=== PATIENT | male | born 1960 | race African-American/Black ===

== ENCOUNTER 2016-12-09 16:35 | Inpatient (IN) | payer BC ==
[~2016-12-09] VITALS: Ht 172.7 cm; Wt 116.6 kg
--- NOTE | ~2016-12-09 | EKG ---
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1960 Requested By: Venkatesh Parra Order Number: [id number] MD: Gen Negro Measurements Intervals [place] Rate: 101 P: 14 SD: 165 QRS: -22 QRSD: 91 T: -22 QT: 332 QTc: 431 Interpretive Statements Sinus tachycardia Left atrial enlargement Left ventricular hypertrophy Borderline T abnormalities, inferior leads No previous ECG available for comparison Electronically Signed On 12-10-2016 7:44:26 CDT by Gen Negro [email or web address] <ELECTRONICALLY SIGNED> By: Gen Negro MD, [facility] 12/10/16 0744 48 48 Gen Negro MD, [facility] /EPI
--- NOTE | ~2016-12-09 | H ---
[facility] [place] [address] HISTORY AND PHYSICAL Name: SVETA MADRID Room #: 408-P ADM IN M.R.#: [id number] Admission: 12/09/16 Attend Phys: Valeriano Cummings MD Discharge: Date of : 60 Report #: [id number] THIS REPORT FOR: //name// CC: FAM unknown Valeriano Cummings DATE OF SERVICE: 12/09/2016 HISTORY OF PRESENT ILLNESS: The patient is a 56-year-old man with no major health problems, who started having cough and mild shortness of breath 2-3 weeks ago. The patient recalls that initially he started having upper respiratory infection symptoms. He used some wwva-wmi-bgpiokb medications with some success. Last few days, the patient felt progressively short of breath and had fever. He saw his primary care physician, who recommended him to come to the emergency room. While in the ER, the patient's body temperature was found to be 101.2. Chest x-ray showed bilateral infiltrates. The patient received 3 breathing treatments, and now he feels much better. His temperature now is 99.6. His cough has also improved. He has been hemodynamically stable. PAST MEDICAL HISTORY: 1. Hypertension. 2. Allergies. CURRENT MEDICATIONS: Amlodipine 10 mg a day, hydrochlorothiazide 25 mg a day, lisinopril 20 mg a day, and Claritin 10 mg a day. SOCIAL HISTORY: The patient does not smoke cigarettes and does not drink alcohol. FAMILY HISTORY: Reviewed and not pertinent to the patient's current condition. REVIEW OF SYSTEMS: As above in HPI section, all others negative. PHYSICAL EXAMINATION: VITAL SIGNS: Blood pressure is 174/97, heart rate is 116, respiration is 20, and temperature is 99.6, from 101.2. Oxygen saturation is 93%. HEENT: Pupils are equal. Eye movements are normal. Sclerae are anicteric. Ear examination is deferred. NECK: Supple. The patient has no thyromegaly. Oral mucosa is moist. Thyromegaly is not palpated. RESPIRATORY: Chest moves symmetrically with breathing. The patient has scattered wheezes bilaterally. Crackles are not appreciated. CARDIOVASCULAR: The patient has regular rhythm and rate. He has no murmurs, gallops, or rubs. [address] [address] HISTORY AND PHYSICAL Name: MADRIDSVETA YUAN Room #: [address] [place] [address] IN M.R.#: [id number] Admission: 12/09/16 Attend Phys: Valeriano Cummings MD Discharge: Date of : 60 Report #: [id number] GASTROINTESTINAL: Abdomen is soft, nondistended, and nontender. Bowel sounds are present. The patient has no hepatomegaly or splenomegaly. MUSCULOSKELETAL: The patient has no edema, cyanosis, or clubbing. NEUROLOGIC: The patient is alert and oriented x3. His examination is nonfocal. LABORATORY DATA: Chest x-ray shows bilateral perihilar hazy infiltrates. Lactic acid is normal. Basic metabolic profile is unremarkable. On CBC, white count is normal, with 7% of bandemia. Hemoglobin is 11.9, hematocrit is 36.7, and MCV is 76.2. Platelets are normal. ASSESSMENT AND PLAN: 1. Community-acquired pneumonia. The patient is started on Zithromax and Rocephin, which will be continued. Blood culture is obtained, and the results will be followed. The patient will be continued on breathing treatments. 2. Accelerated hypertension. Home medications will be resumed. We will treat the patient with hydralazine p.r.n. 3. Mild anemia and low MCV. Possible iron deficiency. Outpatient workup. 4. Deep venous thrombosis prophylaxis. SubQ Retax. By: 49 10 Valeriano Cummings MD /nt
--- NOTE | ~2016-12-09 | 2DMMODE ---
[facility] [address] [place] [address] 2 D/M-MODE ECHOCARDIOGRAM Name: SVETA MADRID Room #: 212-P ADM IN M.R.#: [id number] Admission: 12/09/16 Attend Phys: Valeriano Cummings Discharge: Date of : 60 Date of Service: 12/11/16 1108 Report #: [id number] THIS REPORT FOR: //name// APPROVED REPORT Study performed: 12/11/2016 09:57:50 EXAM: Comprehensive 2D, Doppler, and color-flow Echocardiogram Patient Location: Echo lab Room #: 212 Blood Pressure: 142/75 mmHg HR: 119 bpm Rhythm: Tachycardia Other Information Study Quality: Adequate Indications Cough and SOA Hx HTN 2D Dimensions RVDd: 47.93 mm LVEF(%): 77.48 (>50%) IVSd: 13.98 (7-11mm) LVOT Diam: 22.57 (18-24mm) LVDd: 49.77 mm PWd: 12.57 (7-11mm) Ascending Ao: 29.91 (22-36mm) LVDs: 26.73 (25-40mm) Aortic Root: 33.35 mm Gupta's LVEF: 77.48 % Volumes Left Atrial Volume (Systole) Single Plane 4CH: 77.57 mL Single Plane 2CH: 97.15 mL Aortic Valve AoV Peak Vivek.: 2.30 m/s AO Peak Gr.: 21.20 mmHg LVOT Max P.73 mmHg LVOT Max V: 1.48 m/s ROBERT Vmax: 2.57 cm2 Mitral Valve IVRT: 83.04 ms [facility] [address] [place] [address] 2 D/M-MODE ECHOCARDIOGRAM Name: SVETA MADRID Room #: 212-P ADM IN M.R.#: [id number] Admission: 12/09/16 Attend Phys: Valeriano Cummings Discharge: Date of : 60 Date of Service: 12/11/16 1108 Report #: [id number] Pulmonary Valve PV Peak Vivek.: 1.19 m/s PV Peak Gr.: 5.65 mmHg Tricuspid Valve RAP Estimate: 5.00 mmHg Left Ventricle The left ventricle is normal size. There is normal LV segmental wall motion. Mild concentric left ventricular hypertrophy. The left ventricular systolic function is normal. LVEF is 65%. This study is not technically sufficient to allow evaluation of the LV diastolic function due to tachycardia. Right Ventricle The right ventricle is normal size. The right ventricular systolic function is normal. Atria Left atrium is dilated. Right atrium is dilated. Aortic Valve The aortic valve is normal in structure. No aortic regurgitation is present. There is no aortic valvular stenosis. Mitral Valve The mitral valve is normal in structure. Trace mitral regurgitation. No evidence of mitral valve stenosis. Tricuspid Valve The tricuspid valve is normal in structure. There is no tricuspid valve regurgitation noted. Pulmonic Valve Pulmonic valve is not well visualized. Great Vessels The aortic root is normal in size. The ascending aorta is normal in size. IVC is normal in size and collapses >50% with inspiration. Pericardium There is no pericardial effusion. <Conclusion> The left ventricle is normal size. LVEF is 65%. [facility] [address] [place] [address] 2 D/M-MODE ECHOCARDIOGRAM Name: SVETA MADRID Room #: 212-[facility] IN M.R.#: [id number] Admission: 12/09/16 Attend Phys: Valeriano Cummings Discharge: Date of : 60 Date of Service: 12/11/161107 Report #: [id number] Left atrium is dilated. Right atrium is dilated. The aortic valve is normal in structure. The mitral valve is normal in structure. Trace mitral regurgitation. The tricuspid valve is normal in structure. <ELECTRONICALLY SIGNED> By: Kelby Castorena MD 12/11/168 07 07 Kelby Castorena MD /INF
--- NOTE | ~2016-12-09 | HC ---
[facility] [address] [place] [address] CONSULTATION Name: SVETA MADRID Room #: 210- ADM IN M.R.#: [id number] Admission: 12/09/16 Attend Phys: Valeriano Cummings MD Discharge: Date of : 60 Report #: [id number] THIS REPORT FOR: //name// CC: FAM unknown Valeriano Cummings REASON FOR CONSULTATION: I was asked to evaluate concerning fever and pulmonary infiltrates. HISTORY OF PRESENT ILLNESS: The patient was a 56-year-old with history of hypertension and previous atrial fibrillation who presents with a 2-week history of sinus congestion, postnasal drip, cough, which has progressed to shortness of breath. In the last several days, he is noted fever and chills. He has not taken his temperature. He was seen in the outpatient clinic and recommended evaluation in the emergency room where chest x-ray showed bilateral more basilar infiltrate and fever over 101 degrees. He was started on IV antibiotic therapy. Went into atrial fibrillation with rapid ventricular response overnight and was sent down to the critical care unit. He remains hemodynamically stable. History of atrial fibrillation, he stated about 10 years ago, which was intermittent. He said he had his follow up visit all was clear and no further treatment was recommended. He has had 2 pneumonias in the past, last one in the late 1990s. He has no HIV risk factors. He does have intermittent chronic sinus disease. He is a nonsmoker. 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 He has several children at home, all of them have been well. No other known exposures. ALLERGIES: None. MEDICATIONS: As noted on his MAR, including amlodipine, hydrochlorothiazide, lisinopril and Claritin, now on vancomycin and Levaquin. PAST MEDICAL HISTORY: As noted above with no additions. FAMILY HISTORY: Noncontributory. SOCIAL HISTORY: As noted above with no tobacco or alcohol use. REVIEW OF SYSTEMS: He denies any GI or complaints. No rash, arthritis, headache. PHYSICAL EXAMINATION: VITAL SIGNS: Temperature is 99.7, hemodynamically stable, although he is tachycardic at 120. He was alert and cooperative and pleasant, in no acute distress. His maximum temperature in the last 24 hours is 102.4 degrees. SKIN: Unremarkable. LYMPH: Unremarkable other than some moderately obese. [address] [address] CONSULTATION Name: SVETA MADRID Room #: 210 ADM IN M.R.#: [id number] Admission: 12/09/16 Attend Phys: Valeriano Cummings MD Discharge: Date of : 60 Report #: [id number] HEENT: Unremarkable. NECK: Supple. LUNGS: Few crackles in the bases bilaterally, had some lesion in the upper mid chest. HEART: Tachycardic. No rub appreciated. ABDOMEN: Soft, nontender, no hepatosplenomegaly or mass. EXTREMITIES: No peripheral edema. NEUROLOGIC: Normal. LABORATORY STUDIES: Chest x-ray, bilateral perihilar and basilar infiltrates, greatest on the left. Blood cultures are pending, negative so far. MRSA screen is pending. Sodium 140, potassium 3.6, bicarbonate 27, creatinine 1, hemoglobin 12.4, platelet count 331,000, white count 9.9, 79% segs, 2% bands. IMPRESSION: A 56-year-old with bilateral pulmonary infiltrates, ongoing fever with complication of atrial fibrillation with rapid ventricular response. His echocardiogram showed a good EF, although he did have dilated right and left atriums. I suspect community acquired organisms, most likely, although needs further evaluation. I would recommend continuing broad antibiotic coverage for community acquired organisms. Check sputum culture, urine antigens, screen HIV and immunoglobulin, treat atrial fibrillation and followup chest x-ray. <ELECTRONICALLY SIGNED> By: Vance Reid MD 12/12/16 1857 1310 12 Vance Reid MD /nt
[2016-12-09 16:39] VITALS: BP 202/111
[2016-12-09] MEDS ORDERED: CLARITIN10 MG PO (17:08)
[2016-12-09 17:35] LABS: HEMATOCRIT 36.7 % (42.0-52.0); HEMOGLOBIN 11.9 gm/dL (14.0-18.0); MANUAL DIFF YES; MCH 24.6 pg (26.0-34.0); MCHC 32.3 g/dL (28.0-37.0); MCV 76.2 fL (80.0-100.0); PLATELET COUNT 309 thou/uL (150-400); RBC 4.82 mil/uL (4.50-6.00); RDW 19.6 % (10.5-14.5); WBC 8.9 thou/uL (4.0-11.0)
[2016-12-09 17:46] LABS: ANION GAP 9 mmol/L (7-16); BUN 12 mg/dL (7-18); CALCIUM 9.2 mg/dL (8.5-10.1); CHLORIDE 101 mmol/L (98-107); CO2 27 mmol/L (21-32); GLUCOSE 118 mg/dL (74-106); POTASSIUM 3.5 mmol/L (3.5-5.1); SODIUM 137 mmol/L (136-145)
[2016-12-09 17:58] LABS: NT-PRO BRAIN NAT PEPTIDE 213 pg/mL (<300); TROPONIN-I < 0.04 ng/mL (<0.04-0.07)
[2016-12-09 18:00] LABS: ABSOLUTE NEUTROPHILS 6.9 thou/uL (1.4-8.2); ANISOCYTOSIS 1+; HYPOCHROMASIA SLIGHT; TOTAL CELL COUNT 100
[2016-12-09 18:01] LABS: LARGE PLATELETS FEW
[2016-12-09] MEDS ORDERED: NORVASC10 MG PO (19:00)
[2016-12-09] MEDS ORDERED: PRINIVIL20 MG PO (19:00)
[2016-12-09] MEDS ORDERED: HYDROCHLOROTHIA25 M2 PO (19:00)
[2016-12-09 19:50] VITALS: BP 146/98
[2016-12-10] VITALS (16 sets, daily range): BP systolic 136–184; BP diastolic 65–113
[2016-12-10 06:14] LABS: HEMATOCRIT 37.7 % (42.0-52.0); HEMOGLOBIN 12.2 gm/dL (14.0-18.0); MCH 24.8 pg (26.0-34.0); MCHC 32.4 g/dL (28.0-37.0); MCV 76.8 fL (80.0-100.0); PLATELET COUNT 327 thou/uL (150-400); RBC 4.91 mil/uL (4.50-6.00); RDW 19.9 % (10.5-14.5); WBC 9.9 thou/uL (4.0-11.0)
[2016-12-10 06:15] LABS: MANUAL DIFF YES
[2016-12-10 06:20] LABS: CALCIUM 8.9 mg/dL (8.5-10.1); CREATININE 1.2 mg/dL (0.7-1.3); POTASSIUM 3.6 mmol/L (3.5-5.1)
[2016-12-10 08:42] LABS: ABSOLUTE NEUTROPHILS 7.7 thou/uL (1.4-8.2); ANISOCYTOSIS 1+; PLATELET ESTIMATE NORMAL; TOTAL CELL COUNT 100
[2016-12-11] VITALS (9 sets, daily range): BP systolic 124–169; BP diastolic 75–106
[2016-12-11 05:00] LABS: HEMATOCRIT 38.1 % (42.0-52.0); HEMOGLOBIN 12.4 gm/dL (14.0-18.0); MCH 24.8 pg (26.0-34.0); MCHC 32.6 g/dL (28.0-37.0); MCV 76.1 fL (80.0-100.0); PLATELET COUNT 331 thou/uL (150-400); RBC 5.01 mil/uL (4.50-6.00); RDW 19.4 % (10.5-14.5); WBC 9.9 thou/uL (4.0-11.0)
[2016-12-11 05:05] LABS: MANUAL DIFF YES
[2016-12-11 05:08] LABS: CALCIUM 9.1 mg/dL (8.5-10.1); POTASSIUM 3.6 mmol/L (3.5-5.1)
[2016-12-11 05:34] LABS: METAMYELOCYTES 1 %; TOTAL CELL COUNT 100
[2016-12-11 05:35] LABS: ANISOCYTOSIS 2+; MACROCYTES FEW; MICROCYTES 2+; POLYCHROMASIA 1+
[2016-12-11 19:08] LABS: IgE < 1 IU/mL (0-100)
[2016-12-11 22:09] LABS: HIV ANTIBODY Non Reactive (Non Reactive)
[2016-12-11 23:10] LABS: IgA < 50 mg/dL (90-386); IgG 608 mg/dL (700-1600); IgM 87 mg/dL (20-172)
[2016-12-12 01:59] LABS: HEMATOCRIT 35.9 % (42.0-52.0); HEMOGLOBIN 11.7 gm/dL (14.0-18.0); MCH 24.7 pg (26.0-34.0); MCHC 32.6 g/dL (28.0-37.0); MCV 75.5 fL (80.0-100.0); PLATELET COUNT 317 thou/uL (150-400); RBC 4.76 mil/uL (4.50-6.00); RDW 19.4 % (10.5-14.5); WBC 9.5 thou/uL (4.0-11.0)
[2016-12-12 02:00] LABS: CALCIUM 8.7 mg/dL (8.5-10.1); CREATININE 1.3 mg/dL (0.7-1.3); MANUAL DIFF YES; POTASSIUM 3.8 mmol/L (3.5-5.1)
[2016-12-12 02:34] LABS: ABSOLUTE NEUTROPHILS 6.6 thou/uL (1.4-8.2); ANISOCYTOSIS 2+; MICROCYTES 1+; TOTAL CELL COUNT 100
[2016-12-12 04:11] VITALS: BP 156/101
[2016-12-12 09:06] VITALS: BP 130/91
[2016-12-12 11:52] VITALS: BP 145/90
[2016-12-12 12:14] VITALS: BP 132/67
[2016-12-12 15:45] VITALS: BP 137/85
[2016-12-12 17:33] LABS: URINE BILIRUBIN NEGATIVE (Negative); URINE BLOOD 1+ (Negative); URINE COLOR YELLOW; URINE GLUCOSE-RANDOM* NEGATIVE (Negative); URINE KETONES NEGATIVE (Negative); URINE LEUKOCYTES-REFLEX NEGATIVE (Negative); URINE PROTEIN (DIPSTICK) 2+ (Negative); URINE SPECIFIC GRAVITY >= 1.030 (1.003-1.035); URINE UROBILINOGEN 0.2 E.U./dl (0.2-1.0)
[2016-12-12 17:40] LABS: AMORPHOUS URATES Few /LPF (None Seen); HYALINE CASTS 0-3 Few /LPF (None Seen); SQUAMOUS 0-3 Few /LPF (0-3); URINE RBC 3-10 Few /HPF (0-2); URINE WBC-REFLEX 0-5 Rare /HPF (0-5)
[2016-12-12 20:54] VITALS: BP 148/77
[2016-12-13 04:44] VITALS: BP 148/100
[2016-12-13 08:31] VITALS: BP 139/79
[2016-12-13 12:20] VITALS: BP 139/79
[2016-12-13] MEDS ORDERED: LEVAQUIN 750 M750 MG PO (12:25)
[2016-12-13] MEDS ORDERED: BYSTOLIC10 MG PO (12:27)
[2016-12-13] MEDS ORDERED: VENTOLIN HFA 1818 GM INH (12:27)
[2016-12-13 13:00] VITALS: BP 139/79
[2016-12-14 08:22] LABS: LEGIONELLA PCR SOURCE SPUTUM
== END 2016-12-13 13:33 | disposition home or self-care (01) | DRG 871 ==
LOC: ER 16:35 → EROBS 18:40 → 4N 18:40 → 2N 12-10 17:34
PROVIDERS: Internal Medicine Endocrinology, Diabetes & Metabolism; Physician Assistant; Specialist
PROC: 5A09357 Assistance with Respiratory Ventilation, Less than 24 Consecutive Hours, Continuous Positive Airway Pressure (ICD-10-PCS; principal; 2016-12-09)
DX: A41.9 Sepsis, unspecified organism (principal); A48.1 Legionnaires' disease; I10 Essential (primary) hypertension; N28.89 Other specified disorders of kidney and ureter; D64.9 Anemia, unspecified; I48.0 Paroxysmal atrial fibrillation; F41.9 Anxiety disorder, unspecified; G47.33 Obstructive sleep apnea (adult) (pediatric); J30.2 Other seasonal allergic rhinitis; Z79.899 Other long term (current) drug therapy
CPT/HCPCS: 10081; 10091

== ENCOUNTER 2017-11-04 09:31 | Inpatient (IN) | payer BC ==
[~2017-11-04] VITALS: Ht 188 cm; Wt 120.1 kg
[2017-11-04] VITALS (7 sets, daily range): BP systolic 128–155; BP diastolic 86–118
--- NOTE | ~2017-11-04 | CNG ---
[facility] [place] [address] CYTO-NONGYN REPORT PROCEDURE Name: SVETA MADRID Room #: 359-P ADM IN M.R.#: [id number] Admission: 11/04/17 Date of : 60 Discharge: Report #: [id number] Path Case #: [id number] CYTOPATHOLOGY REPORT COLLECTION DATE: 11/09/2017 RECEIVED DATE: 11/09/2017 SUBMITTING PHYS: Dr. Agus Brar OTHER PHYS: Angelo Abel D.O. CLINICAL HISTORY: Sepsis, CAP, AFIB, RVR, Weakness, CHF, SOA SPECIMEN(S) RECEIVED: A.Bronchoalveolar lavage, NOS B.Bronchoalveolar lavage,NOS * * * * * * * * * * * * FINAL DIAGNOSIS: A. Bronchoalveolar lavage, NOS: - No malignant epithelial cells identified. - Bronchial epithelial cells, alveolar macrophages, and squamous cells are present amongst acute and chronic inflammatory cells in a background of partially obscuring debris. B. Bronchoalveolar lavage,NOS: - Paucicellular specimen with rare acute and chronic inflammatory cells present in a background of partially obscuring debris. PATHOLOGIST: Courtney Riley M.D. REPORT ELECTRONICALLY SIGNED BY: Courtney Riley M.D. DATE/TIME: 11/10/2017 12:15 * * * * * * * * * * * * GROSS PATHOLOGY: A. Bronchoalveolar lavage, NOS: The specimen is submitted unfixed, labeled "Sveta Madrid". Received by the Cytology Department is seven mL of cloudy pink fluid. One ThinPrep slide was prepared. B. Bronchoalveolar lavage,NOS: The specimen is submitted unfixed, labeled "Sveta Madrid". Received by the Cytology Department is five mL of cloudy red fluid. One ThinPrep slide was prepared. (mm 11.09.2017) URBAN PLANNING PROFESSOR(S): DEVIKA Beavers([facility]) INITIAL CPT CODE(S): A; 44619 B; 27157 Professional [facility] by [facility] at [address] , [place] [address] [place] [address] CYTO-NONGYN REPORT PROCEDURE Name: SVETA MADRID Room #: 359-P [facility] IN M.R.#: [id number] Admission: 11/04/17 Date of : 60 Discharge: Report #: [id number] Path Case #: [id number] Technical services performed [facility] at [address] [place] [address], [address], [place] [address]. [address] [place] [address] PHONE: [phone] DIRECTOR: Ky Ceron M.D. * * * END OF REPORT * * *
--- NOTE | ~2017-11-04 | O ---
[facility] [place] [address] OPERATIVE REPORT Name: SVETA MADRID Room #: 359-P [facility] IN M.R.#: [id number] Admission: 11/04/17 Attend Phys: Agus Brar DO Discharge: Date of : 60 Report #: [id number] THIS REPORT FOR: //name// CC: TATYANA Brar PROCEDURE: Bronchoscopy. CLINICAL HISTORY: A 57-year-old -L[place] male with persistent infiltrates, mediastinal adenopathy. A diagnostic bronchoscopy was performed. POSTOPERATIVE DIAGNOSIS: Diffuse bilateral airway edema, greater in the left upper lobe. IMPRESSION: No evidence of pneumonia. DESCRIPTION OF PROCEDURE: Following obtaining consent and risks and benefits been explained to the patient, which include infection, bleeding, pneumothorax, procedure performed in the endoscopy suite. The patient received 4% aerosolized lidocaine to the upper airways. Also, was given 2% lidocaine to the vocal cords. Then, 1% lidocaine was used below the vocal cords. He also received total of 4 mg of Versed along with 100 mcg of fentanyl IV. A flexible fiberoptic bronchoscope was then introduced to the right naris without difficulty. The hypopharyngeal area was redundant. The patient does have a history of sleep apnea. The epiglottis was otherwise unremarkable. The vocal cords were normal. The trachea was grossly unremarkable. Brooke was normal. Right mainstem bronchus, right upper lobe, right middle lobe and right lower lobe were notable for drzl-ie-vvzgickq mucosal edema without obvious airway obstruction. No purulent secretion seen. The left mainstem bronchus was unremarkable other than a mild mucosal edema. The left upper lobe showed moderate mucosal edema with some narrowing. No obstruction was seen. There were whitish secretions seen emanating from the anterior segment of the left upper lobe. The left lower lobe also showed oedi-ks-sfhddrvw edema. No purulent secretions seen in this segment. Bronchoalveolar lavage was performed at the approximate anterior segment of the left upper lobe. Four aliquots of 20 mL normal saline was used with adequate return. We attempted to do a bronchial biopsy of the mucosa; however, with minimal airway trauma, the patient appeared to have moderate bleeding. Of note, the patient was on Xarelto, which was discontinued about 5 days ago. We then washed the area of the bleed in the proximal segment of the left upper lobe. While suctioning along with administration of 5 mL of 1:100,000 epinephrine, the bleeding appears to have subsided. [address] [address] OPERATIVE REPORT Name: SVETA MADRID Room #: 359-P [facility] IN .R.#: [id number] Admission: 11/04/17 Attend Phys: Agus Brar DO Discharge: Date of : 60 Report #: [id number] Vital signs and saturation throughout the study were within normal range. Saturation was 95%. The patient did have trouble with episodic cough throughout the procedure. Bronchial lavage specimen will be sent for microbiologic and cytologic evaluation. Cell count with differential will also be obtained. No biopsy specimen was performed due to moderate bleeding. <ELECTRONICALLY SIGNED> By: Eugene Brady MD 11/09/17 1549 1510 1546 Eugene Brady MD /nt
--- NOTE | ~2017-11-04 | EKG ---
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
--- NOTE | ~2017-11-04 | 2DMMODE ---
[facility] [address] [place] [address] 2 D/M-MODE ECHOCARDIOGRAM Name: SVETA MADRID Room #: 359-P ADM IN ..#: [id number] Admission: 11/04/17 Attend Phys: Agus Brar, Discharge: Date of : 60 Date of Service: 11/04/17 1537 Report #: [id number] THIS REPORT FOR: //name// APPROVED REPORT Study performed: 11/04/2017 13:45:26 EXAM: Comprehensive 2D, Doppler, and color-flow Echocardiogram Patient Location: Bedside Room #: 359 Status: routine BSA: 2.43 HR: 120 bpm BP: 128/86 mmHg Rhythm: Atrial Fibrillation Other Information Study Quality: Technically Difficult Technically limited study due to body habitus, lung disease, poor endocardial definition. Indications Atrial Fibrillation Exertional SOB, Chest pressure, HTN Echo Enhancing Agent Indication: Endocardial border delineation Agent(s) / Amount(s) Used: Optison 4 cc 2D Dimensions RVDd: 36.29 mm LVEF(%): 48.06 (>50%) IVSd: 13.34 (7-11mm) LVOT Diam: 20.50 (18-24mm) LVDd: 41.24 mm PWd: 11.65 (7-11mm) LVDs: 31.39 (25-40mm) Aortic Root: 36.12 mm IVC: 21.00 mm TAPSE: 2.50 (<1.7) Gupta's LVEF: 48.06 % Volumes Left Atrial Volume (Systole) Single Plane 4CH: 124.71 mL Single Plane 2CH: 146.62 mL LA ESV Index: 64.00 mL/m2 Aortic Valve [facility] [place] [address] [place] [address] 2 D/M-MODE ECHOCARDIOGRAM Name: SVETA MADRID Room #: 359 ADM IN ..#: [id number] Admission: 11/04/17 Attend Phys: Agus Brar, Discharge: Date of : 60 Date of Service: 11/04/17 1537 Report #: [id number] AoV Peak Vivek.: 1.75 m/s AO Peak Gr.: 12.59 mmHg LVOT Max P.38 mmHg LVOT Max V: 1.15 m/s ROBERT Vmax: 2.18 cm2 Mitral Valve MV Decel. Time: 195.13 ms MV E Max Vivek.: 1.27 m/s Pulmonary Valve PV Peak Vivek.: 0.92 m/s PV Peak Gr.: 3.40 mmHg Tricuspid Valve RAP Estimate: 10.00 mmHg Left Ventricle The left ventricle is normal size. Mild concentric left ventricular hypertrophy. Left ventricular systolic function is mildly decreased. LVEF is 40-45%. This study is not technically sufficient to allow evaluation of the LV diastolic function due to atrial fibrillation. Right Ventricle The right ventricle is normal size. The right ventricular systolic function is normal. Atria Left atrium is dilated. Right atrium is dilated. Aortic Valve The aortic valve is normal in structure. Mild aortic regurgitation. There is no aortic valvular stenosis. Mitral Valve Mitral valve leaflets are mildly thickened. There is no mitral valve regurgitation noted. No evidence of mitral valve stenosis. Tricuspid Valve The tricuspid valve is normal in structure. Trace tricuspid regurgitation. Unable to assess PA pressure. Pulmonic Valve The pulmonary valve is normal in structure. Trace pulmonic regurgitation. Great Vessels [facility] [address] [place] [address] 2 D/M-MODE ECHOCARDIOGRAM Name: SVETA MADRID Room #: 359-P ADM IN M.R.#: [id number] Admission: 11/04/17 Attend Phys: Agus Brar, Discharge: Date of : 60 Date of Service: 11/04/17 1537 Report #: [id number] The aortic root is normal in size. IVC is normal in size and collapses <50% with inspiration. Pericardium There is no pericardial effusion. <Conclusion> The left ventricle is normal size. Mild concentric left ventricular hypertrophy. LVEF is 40-45%. This study is not technically sufficient to allow evaluation of the LV diastolic function due to atrial fibrillation. The right ventricle is normal size. Left atrium is dilated. Right atrium is dilated. Mild aortic regurgitation. There is no aortic valvular stenosis. There is no mitral valve regurgitation noted. Mitral valve leaflets are mildly thickened. Trace tricuspid regurgitation. Unable to assess PA pressure. The aortic root is normal in size. There is no pericardial effusion. <ELECTRONICALLY SIGNED> By: Tomi Riddle MD, FACC 11/04/17 1537 1537 1537 Tomi Riddle MD, FACC /INF
--- NOTE | ~2017-11-04 | EKG ---
[address] [place] [address] ELECTROCARDIOGRAM REPORT Name: SVETA MADRID Room #: 359-P ADM IN M.R.#: [id number] Admission: 11/04/17 Attend Phys: Agus Brar DO Discharge: Date of : 60 Report #: [id number] THIS REPORT FOR: //name// [facility] ED Test Date: 2017-11-04 Test Time: 09:49:59 Pat Name: SVETA MADRID Department: Room: 359 Gender: M Barback: CLEMENT : 1960 Requested By: Tolu Andrea Order Number: [id number] MD: Gen Negro Measurements Intervals [place] Rate: 186 P: NE: QRS: -33 QRSD: 87 T: -59 QT: 288 QTc: 507 Interpretive Statements Atrial fibrillation with rapid V-rate Abnormal R-wave progression, late transition Nonspecific ST and T wave abnormality Compared to ECG 12/09/2016 16:49:43 Atrial fibrillation has replaced sinus rhythm Electronically Signed On 11-05-2017 8:17:56 CDT by Gen Negro [email or web address] <ELECTRONICALLY SIGNED> By: Gen Negro MD, [facility] 11/05/17 0817 0949 0949 Gen Negro MD, [facility] /EPI
--- NOTE | ~2017-11-04 | HC ---
[facility] [place] [address] CONSULTATION Name: SVETA MADRID Room #: 359- ADM IN M.R.#: [id number] Admission: 11/04/17 Attend Phys: Agus Brar DO Discharge: Date of : 60 Report #: [id number] THIS REPORT FOR: //name// CC: TATYANA Brar DATE OF SERVICE: 11/05/2017 REFERRAL PHYSICIAN: Dr. Brar. PRIMARY CARE PHYSICIAN: Dr. Abel. REASON FOR REFERRAL: History of lung nodules and infiltrates. HISTORY OF PRESENT ILLNESS: The patient is a 57-year-old -Pakistani male, who presents to the Emergency Room with progressive dyspnea and chest discomfort. A pulmonary consultation was requested. The patient was hospitalized about a year ago at [facility]. He was treated for pneumonia at that time. Chest x-ray revealed infiltrates. With persistent symptoms, I was concerned that patient may have atypical pneumonia including possible though this was not confirmed. The patient is normally followed at [facility]. He was seen by the Pulmonary Department at [facility]. I do not have any records there for review. According to the patient, he was found to have pulmonary nodules. He has had [address] chest along with PET scan. He was told that these are nodules. He was also told that some of the nodules are migratory in nature. He was scheduled to undergo lung biopsy yesterday at [facility]. This was delayed and the patient presented to the hospital here. He states that since his pneumonia about a year ago, he has felt better. His fever, bronchospasm and dyspnea improved. About a week or so ago, he developed flu-like symptoms. Fever returned along with dyspnea and episodic wheezing. With worsening symptoms, he presented to the Emergency Room. He has a cough, but is relatively nonproductive. Yesterday, he had speckled hemoptysis, although this has spontaneously resolved. He has never smoked and denies any history of chronic lung disease. Growing up as a child, he remembers having episodic dyspnea and wheezing, especially when he had an upper respiratory tract infection. He does not remember having wheezes episodically growing up, but was again never diagnosed or treated. Chest x-ray on admission shows prominent pulmonary vascular markings, patchy [address] [address] CONSULTATION Name: SVETA MADRID Room #: 359-P [facility] IN M.R.#: [id number] Admission: 11/04/17 Attend Phys: Agus Brar DO Discharge: Date of : 60 Report #: [id number] bilateral nodular infiltrates in the perihilar region. This appears to be chronic when compared to prior chest x-ray approximately a year ago. PAST MEDICAL HISTORY: Notable for atrial fibrillation, paroxysmal, initially diagnosed in 2001, previous echocardiogram showed ejection fraction of 65%; hypertension; seasonal allergies, primarily during spring. PAST SURGICAL HISTORY: Status post tonsillectomy. ALLERGIES: None to medications. HOME MEDICATIONS: Claritin, Norvasc, hydrochlorothiazide, Prinivil. FAMILY HISTORY: Noncontributory. SOCIAL HISTORY: Again, he has never smoked. Drinks occasionally. 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 REVIEW OF SYSTEMS: As mentioned above. Again, he has spring allergies. This will result in episodic dyspnea, bronchospasm. Otherwise, 10-point system review negative. PHYSICAL EXAMINATION: GENERAL: He is awake, alert, in no apparent distress. VITAL SIGNS: Temperature maximum was 103.3 degrees Fahrenheit, pulse is 101, respiratory rate is 20, blood pressure 140/100 mmHg, saturation 93%. HEENT: Normocephalic, atraumatic. NECK: Supple without lymphadenopathy or thyromegaly. CHEST: Breath sounds are good with mild expiratory wheezes. Few scattered crackles in the bases. CARDIOVASCULAR: Normal S1, S2. No murmurs or gallop. There is no JVD, no carotid bruit. Pulses are 2+/4+ bilaterally. ABDOMEN: Soft, nontender. No organomegaly or masses felt. GENITOURINARY: Deferred. RECTAL: Deferred. EXTREMITIES: There is edema, cyanosis or clubbing. LABORATORY DATA: Chest x-ray again shows prominent pulmonary vascular markings, patchy nodular infiltrates, cardiomegaly, bibasilar infiltrates are noted. Lactic acid is normal. Influenza A and B is negative. Echocardiogram showed ejection fraction approximately 40%, normal left ventricular size, normal right ventricular size, dilated right atrium, dilated left atrium. No significant valvular heart disease. Pulmonary artery pressure was not able to be measured. The patient was in atrial fibrillation. Sed rate is 4. Rheumatoid factor was normal. MANUEL is pending. Complement levels are normal. Electrolytes are normal except for creatinine of 1.4. His baseline creatinine appears to be 1.3. WBC [facility] [address] [place] [address] CONSULTATION Name: SVETA MADRID Room #: 359-P ADM IN M.R.#: [id number] Admission: 11/04/17 Attend Phys: Agus Brar DO Discharge: Date of : 60 Report #: [id number]. No evidence of bandemia. No evidence of eosinophilia. Platelets are normal. Albumin 3.0. IMPRESSION: 1. Progressive dyspnea, febrile illness in this 57-year-old -Pakistani male. He was diagnosed with pneumonia about a year ago. His chest x-ray shows what appears to be acute on chronic infiltrates. He has been also told recently by CT chest the lung nodule, which appears to be migratory in nature. Echocardiogram showed cardiomyopathy with ejection fraction of 40% along with creatinine 1.4. Unfortunately, I do not have the CT imaging from [facility] for review. This has been requested. Etiology remains unclear, but appears that etiology may be directed to possible inflammatory causes or collagen vascular disease. Acute bacterial infection is felt to be less likely though cannot be absolutely ruled out. With renal failure, need to consider pulmonary renal syndrome. Of note, he does have bronchospasm. This is likely related to underlying processes. 2. History of lung nodules. Chest x-ray as mentioned above. Again, we will review the chest CT when available. Etiology remains unclear. This is likely contributing to his current febrile illness and respiratory symptoms. 3. Bronchospasm. Unclear if patient does have underlying asthma based on his childhood history. Would recommend trial of corticosteroids. 4. Acute kidney injury/chronic kidney disease. Etiology remains unclear. Please see above comments. 5. Atrial fibrillation with recent onset rapid ventricular response, now stable on Cardizem drip. 6. Hypertension. 7. Questionable history of sleep apnea. The patient did not provide this history during my questioning. Agree that patient should be evaluated for possible sleep disorder if not already. Note, his echocardiogram shows cardiomyopathy. RECOMMENDATION AND DISCUSSION: I do agree that bronchoscopy will be helpful in this patient with infiltrates, febrile illness of undetermined etiology. However, I will need to review the chest CT to direct where to sample the specimens. CT chest from [facility] has been requested. For now, I would treat for presumed infectious process, trial of corticosteroids [facility] [address] [place] [address] CONSULTATION Name: SVETA MADRID Room #: 359-P ADM IN M.R.#: [id number] Admission: 11/04/17 Attend Phys: Agus Brar DO Discharge: Date of : 60 Report #: [id number] along with bronchodilators. I will agree with collagen vascular workup. Eventually, the patient should be evaluated for possible sleep apnea. Renal function should be monitored closely. May need further evaluation if renal function worsens. DVT and GI prophylaxis will be recommended. May need to consider anticoagulation given his atrial fibrillation. Thank you for the consultation. <ELECTRONICALLY SIGNED> By: Eugene Brady MD 11/08/17 1707 1705 27 Eugene Brady MD /nt
--- NOTE | ~2017-11-04 | HC ---
[facility] [place] [address] CONSULTATION Name: SVETA MADRID Room #: 359-[facility] IN M.R.#: [id number] Admission: 11/04/17 Attend Phys: Agus Brar DO Discharge: Date of : 60 Report #: [id number] THIS REPORT FOR: //name// CC: TATYANA Brar REASON FOR CONSULTATION: I was asked to evaluate concerning bilateral pneumonia. HISTORY OF PRESENT ILLNESS: The patient was a 57-year-old who presented with a 3-day history of increasing shortness of breath along with cough and green sputum production. This is combination of a progressive illness that has occurred over the last year. He was evaluated in November of last year where he was thought to have community-acquired pneumonia, treated with antibiotic therapy. 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 He was treated for such. Also, was diagnosed with atrial fibrillation and has been on medical management for this. He did not improve following his hospitalization and his chest x-ray did not clear. He has been evaluated by Pulmonary Medicine at [facility]. I do not have the records yet from this workup. He had a CAT scan done yesterday because of his progressive shortness of breath. This study is currently pending. He has had plans for bronchoscopy, but has not followed through yet with this. He has had low-grade fever, mostly over the last week. He has had no chills or night sweats. Denies any weight loss. No adenopathy. He has had no travel. No tuberculosis exposure. He is HIV negative. He lives with his who has otherwise been healthy with no respiratory issues. He has had no chest pain or hemoptysis. No sinus disease. No headaches. No oral mucosal lesions. He has had a lesion to his right forearm that has been there for several months. No GI or complaints. PAST MEDICAL HISTORY: Hypertension, tonsillectomy, obstructive sleep apnea, paroxysmal atrial fibrillation, seasonal allergies. ALLERGIES: None known. MEDICATIONS: Lisinopril, metoprolol, Cardizem, Claritin, hydrochlorothiazide. FAMILY HISTORY: Noncontributory. SOCIAL HISTORY: Nonsmoker, no significant alcohol intake. 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 REVIEW OF SYSTEMS: Noted above. PHYSICAL EXAMINATION: CONSTITUTIONAL AND VITAL SIGNS: Currently afebrile and hemodynamically stable. [facility] [address] [place] [address] CONSULTATION Name: SVETA MADRID Room #: 359-P [facility] IN M.R.#: [id number] Admission: 11/04/17 Attend Phys: Agus Brar DO Discharge: Date of : 60 Report #: [id number] He was alert and cooperative. He was in no acute distress. His maximum temperature today was 39.6. Earlier this evening it was 38.8. He was obese. SKIN: Unremarkable other than a small brown nodule on the right forearm. There was no tenderness. No surrounding erythema. He had no adenopathy. HEENT: Unremarkable. NECK: Supple. No thyromegaly. LUNGS: Scattered wheezes. Few crackles heard in the mid posterior chest. No consolidation. No rub. HEART: Irregular without appreciable murmur, gallop or rub. ABDOMEN: Obese, soft, nontender, no hepatosplenomegaly or mass appreciated. EXTREMITIES: Unremarkable. GENITAL AND RECTAL: Not performed. LABORATORY STUDIES: Sodium 140, potassium 3, bicarbonate 26, creatinine 1.6 up from his baseline of 1. BNP 2656. D-dimer negative. Troponin negative. Lactate 1.9. Liver function test normal. Hemoglobin 14.9, WBC 7.6, platelet count 156,000. Differential unremarkable. Blood cultures are pending. Nasal swab for influenza negative. Chest x-ray, cardiomegaly, patchy infiltrates, basilar congestion, vascular congestion. IMPRESSION: A 57-year-old with bilateral pulmonary infiltrates, which by history have not cleared since his hospitalization in November. Would be concerned about autoimmune versus granulomatous process. May have secondary infection on top of things now. Differential remains fairly broad at this time. In addition, the patient has atrial fibrillation, on treatment. He has renal failure, which I suspect is acute. RECOMMENDATIONS: We will obtain cultures autoimmune and granulomatous evaluation. We will arrange bronchoscopy. May need biopsy of his right forearm skin lesion. We will need to discuss with Pulmonary Medicine whether the Xarelto needs to be held prior to their procedure. We will at least hold it for now. He will continue with ceftriaxone and azithromycin. <ELECTRONICALLY SIGNED> By: Vance Reid MD 11/05/17 1023 2151 0049 Vance Reid MD /nt
[~2017-11-04 09:31] MED LIST: BYSTOLIC10 MG PO; CLARITIN10 MG PO; HYDROCHLOROTHIA25 M2 PO; LEVAQUIN 750 M750 MG PO; NORVASC10 MG PO; PRINIVIL20 MG PO; VENTOLIN HFA 1818 GM INH
[2017-11-04 10:06] LABS: HEMATOCRIT 44.8 % (42.0-52.0); HEMOGLOBIN 14.9 gm/dL (14.0-18.0); MCH 26.6 pg (26.0-34.0); MCHC 33.3 g/dL (28.0-37.0); MCV 80.1 fL (80.0-100.0); PLATELET COUNT 156 thou/uL (150-400); RDW 16.4 % (10.5-14.5); WBC 7.6 thou/uL (4.0-11.0)
[2017-11-04 10:15] LABS: ANION GAP 11 mmol/L (7-16); BUN 24 mg/dL (7-18); CALCIUM 9.2 mg/dL (8.5-10.1); CHLORIDE 104 mmol/L (98-107); CO2 26 mmol/L (21-32); CREATININE 1.6 mg/dL (0.7-1.3); GLUCOSE 153 mg/dL (74-106); SODIUM 141 mmol/L (136-145)
[2017-11-04 10:24] LABS: TROPONIN-I < 0.04 ng/mL (<0.06)
[2017-11-04 10:59] LABS: ABSOLUTE NEUTROPHILS 6.2 thou/uL (1.4-8.2); PLATELET ESTIMATE NORMAL
[2017-11-04] MEDS ORDERED: TOPROL XL100 MG PO (13:17)
[2017-11-04] MEDS ORDERED: XARELTO20 MG PO (13:18)
[2017-11-04] MEDS ORDERED: CARDIZEM CD240 MG PO (13:18)
[2017-11-04 21:03] LABS: CALCIUM 8.8 mg/dL (8.5-10.1); CREATININE 1.6 mg/dL (0.7-1.3)
[2017-11-05 03:49] VITALS: BP 149/111
[2017-11-05 04:11] LABS: ABSOLUTE NEUTROPHILS 5.3 thou/uL (1.4-8.2); BASOPHILS 0.3 % (0.0-2.0); EOSINOPHILS 0.8 % (0.0-3.0); HEMATOCRIT 43.3 % (42.0-52.0); LYMPHOCYTES 14.3 % (24.0-44.0); MCH 26.2 pg (26.0-34.0); MCHC 32.5 g/dL (28.0-37.0); MCV 80.8 fL (80.0-100.0); MONOCYTES 11.7 % (1.0-8.0); PLATELET COUNT 150 thou/uL (150-400); POLYS 72.9 % (36.0-66.0); RBC 5.36 mil/uL (4.50-6.00); RDW 16.3 % (10.5-14.5); WBC 7.2 thou/uL (4.0-11.0)
[2017-11-05 04:59] LABS: CALCIUM 8.6 mg/dL (8.5-10.1); CREATININE 1.4 mg/dL (0.7-1.3); POTASSIUM 3.1 mmol/L (3.5-5.1); TOTAL BILIRUBIN 1.2 mg/dL (<0.1-1.0); TOTAL PROTEIN 5.9 g/dL (6.4-8.2)
[2017-11-05 05:00] VITALS: BP 148/108
[2017-11-05 07:16] VITALS: BP 142/94
[2017-11-05 11:09] LABS: COMPLEMENT-C3 148 mg/dL (82-167); COMPLEMENT-C4 35 mg/dL (14-44)
[2017-11-05 15:39] VITALS: BP 135/95
[2017-11-05 19:15] VITALS: BP 140/93
[2017-11-05 23:52] VITALS: BP 129/88
[2017-11-06 03:40] VITALS: BP 127/77
[2017-11-06 06:25] LABS: HEMATOCRIT 44.2 % (42.0-52.0); HEMOGLOBIN 14.3 gm/dL (14.0-18.0); MCH 26.2 pg (26.0-34.0); MCHC 32.3 g/dL (28.0-37.0); MCV 80.9 fL (80.0-100.0); PLATELET COUNT 133 thou/uL (150-400); RBC 5.46 mil/uL (4.50-6.00); RDW 16.7 % (10.5-14.5); WBC 6.6 thou/uL (4.0-11.0)
[2017-11-06 06:39] LABS: CALCIUM 9.1 mg/dL (8.5-10.1); CREATININE 1.3 mg/dL (0.7-1.3); POTASSIUM 3.5 mmol/L (3.5-5.1)
[2017-11-06 07:42] VITALS: BP 144/101
[2017-11-06 07:50] LABS: URINE BILIRUBIN NEGATIVE (Negative); URINE BLOOD TRACE (Negative); URINE CLARITY CLEAR; URINE COLOR YELLOW; URINE GLUCOSE-RANDOM* NEGATIVE (Negative); URINE KETONES NEGATIVE (Negative); URINE LEUKOCYTES NEGATIVE (Negative); URINE NITRITE NEGATIVE (Negative); URINE PROTEIN (DIPSTICK) 1+ (Negative); URINE SPECIFIC GRAVITY 1.025 (1.005-1.035); URINE UROBILINOGEN 0.2 E.U./dl (0.2-1.0)
[2017-11-06 08:04] LABS: MUCUS 0-3 Light strn/LPF (None Seen); SQUAMOUS 0-3 Few /LPF (0-3)
[2017-11-06 08:05] LABS: BACTERIA None Seen /HPF (None Seen); CASTS None Seen /LPF (None Seen); CRYSTALS None Seen /LPF (None Seen); URINE RBC 0-2 Rare /HPF (0-2); URINE WBC 0-5 Rare /HPF (0-5)
[2017-11-06 09:45] LABS: ABSOLUTE NEUTROPHILS 4.6 thou/uL (1.4-8.2); ANISOCYTOSIS 1+
[2017-11-06 11:23] VITALS: BP 133/85
[2017-11-06 15:39] VITALS: BP 138/90
[2017-11-06 19:15] VITALS: BP 146/107
[2017-11-07 03:10] VITALS: BP 140/93; BP 152/101
[2017-11-07 05:50] LABS: ABSOLUTE NEUTROPHILS 3.8 thou/uL (1.4-8.2); BASOPHILS 0.2 % (0.0-2.0); EOSINOPHILS 5.2 % (0.0-3.0); HEMATOCRIT 41.1 % (42.0-52.0); HEMOGLOBIN 13.5 gm/dL (14.0-18.0); LYMPHOCYTES 20.7 % (24.0-44.0); MCH 26.6 pg (26.0-34.0); MCV 80.6 fL (80.0-100.0); MONOCYTES 10.2 % (1.0-8.0); PLATELET COUNT 142 thou/uL (150-400); POLYS 63.7 % (36.0-66.0); RDW 16.8 % (10.5-14.5); WBC 5.9 thou/uL (4.0-11.0)
[2017-11-07 06:01] LABS: CALCIUM 9.3 mg/dL (8.5-10.1); CREATININE 1.5 mg/dL (0.7-1.3); POTASSIUM 4.2 mmol/L (3.5-5.1)
[2017-11-07 07:56] VITALS: BP 138/97
[2017-11-07 12:22] VITALS: BP 125/83
[2017-11-07 15:29] VITALS: BP 154/92
[2017-11-07 20:15] VITALS: BP 147/101
[2017-11-08] VITALS (7 sets, daily range): BP systolic 125–149; BP diastolic 88–117
[2017-11-08 05:52] LABS: ABSOLUTE NEUTROPHILS 4.8 thou/uL (1.4-8.2); BASOPHILS 0.6 % (0.0-2.0); EOSINOPHILS 5.9 % (0.0-3.0); HEMATOCRIT 44.6 % (42.0-52.0); HEMOGLOBIN 14.7 gm/dL (14.0-18.0); LYMPHOCYTES 22.9 % (24.0-44.0); MCH 26.4 pg (26.0-34.0); MCHC 32.9 g/dL (28.0-37.0); MCV 80.1 fL (80.0-100.0); MONOCYTES 8.9 % (1.0-8.0); PLATELET COUNT 173 thou/uL (150-400); POLYS 61.7 % (36.0-66.0); RBC 5.56 mil/uL (4.50-6.00); RDW 17.2 % (10.5-14.5); WBC 7.8 thou/uL (4.0-11.0)
[2017-11-08 06:02] LABS: CALCIUM 9.4 mg/dL (8.5-10.1); CREATININE 1.4 mg/dL (0.7-1.3); POTASSIUM 3.9 mmol/L (3.5-5.1)
[2017-11-08 09:06] LABS: GLOMERULR BASEM MEMBRN AB 4 units (0-20)
[2017-11-08 12:10] LABS: ANA INTERPRETATION Negative (Negative); ANGIOTENSIN CONVERTNG ENZ < 15 U/L (14-82)
[2017-11-08 21:08] LABS: HISTOPLASMA MYCELIAL-ID Negative (Negative)
[2017-11-09 00:07] LABS: ADENOVIRUS Negative (Negative); INFLUENZA A Negative (Negative); INFLUENZA B Negative (Negative); METAPNEUMOVIRUS Positive (Negative); PARAINFLUENZA 1 Negative (Negative); PARAINFLUENZA 2 Negative (Negative); PARAINFLUENZA 3 Negative (Negative); RHINOVIRUS Negative (Negative); RSV A Negative (Negative); RSV B Negative (Negative)
[2017-11-09 04:10] VITALS: BP 150/104
[2017-11-09 05:37] LABS: ABSOLUTE NEUTROPHILS 5.1 thou/uL (1.4-8.2); BASOPHILS 0.5 % (0.0-2.0); EOSINOPHILS 6.1 % (0.0-3.0); HEMATOCRIT 42.9 % (42.0-52.0); HEMOGLOBIN 14.1 gm/dL (14.0-18.0); LYMPHOCYTES 19.9 % (24.0-44.0); MCH 26.4 pg (26.0-34.0); MCHC 32.7 g/dL (28.0-37.0); MCV 80.6 fL (80.0-100.0); PLATELET COUNT 199 thou/uL (150-400); POLYS 64.5 % (36.0-66.0); RBC 5.33 mil/uL (4.50-6.00); RDW 16.9 % (10.5-14.5); WBC 7.9 thou/uL (4.0-11.0)
[2017-11-09 05:42] LABS: CALCIUM 9.1 mg/dL (8.5-10.1); CREATININE 1.3 mg/dL (0.7-1.3); POTASSIUM 4.4 mmol/L (3.5-5.1)
[2017-11-09 08:10] VITALS: BP 144/106
[2017-11-09 11:50] VITALS: BP 152/107
[2017-11-09 11:52] LABS: CLARITY TURBID; COLOR RED; SOURCE BRONCH LAVAGE; TOTAL VOLUME 10 mL
[2017-11-09 12:57] LABS: BF NUCLEATED CELLS 2703; BF RBC 564752
[2017-11-09 13:16] LABS: BF MACROPHAGE 0; BF NEUTROPHILS 92
[2017-11-09 18:08] VITALS: BP 151/108
[2017-11-09 19:28] VITALS: BP 129/92
[2017-11-09 22:10] LABS: HISTOPLASMA MYCELIAL-CF Negative (Neg:<1:2)
[2017-11-09 23:19] VITALS: BP 118/44
[2017-11-10] VITALS (8 sets, daily range): BP systolic 126–160; BP diastolic 91–133
[2017-11-10 05:26] LABS: ABSOLUTE NEUTROPHILS 5.1 thou/uL (1.4-8.2); BASOPHILS 0.4 % (0.0-2.0); EOSINOPHILS 5.5 % (0.0-3.0); HEMOGLOBIN 14.4 gm/dL (14.0-18.0); LYMPHOCYTES 18.9 % (24.0-44.0); MCH 26.6 pg (26.0-34.0); MCHC 32.7 g/dL (28.0-37.0); MCV 81.1 fL (80.0-100.0); PLATELET COUNT 208 thou/uL (150-400); POLYS 67.2 % (36.0-66.0); RBC 5.43 mil/uL (4.50-6.00); RDW 16.8 % (10.5-14.5); WBC 7.5 thou/uL (4.0-11.0)
[2017-11-10 05:37] LABS: CALCIUM 8.9 mg/dL (8.5-10.1); CREATININE 1.3 mg/dL (0.7-1.3); POTASSIUM 4.6 mmol/L (3.5-5.1)
[2017-11-11] VITALS (9 sets, daily range): BP systolic 132–151; BP diastolic 92–107
[2017-11-11 06:07] LABS: HEMATOCRIT 44.8 % (42.0-52.0); HEMOGLOBIN 14.8 gm/dL (14.0-18.0); MCH 26.6 pg (26.0-34.0); MCHC 33.1 g/dL (28.0-37.0); MCV 80.5 fL (80.0-100.0); RBC 5.57 mil/uL (4.50-6.00); RDW 16.8 % (10.5-14.5); WBC 8.4 thou/uL (4.0-11.0)
[2017-11-11 06:13] LABS: CALCIUM 9.2 mg/dL (8.5-10.1); CREATININE 1.5 mg/dL (0.7-1.3); POTASSIUM 4.1 mmol/L (3.5-5.1)
[2017-11-12 04:15] VITALS: BP 152/99
[2017-11-12 07:50] VITALS: BP 162/110
[2017-11-12 12:08] VITALS: BP 153/95
[2017-11-12 20:00] VITALS: BP 138/88
[2017-11-13 05:15] VITALS: BP 157/91
[2017-11-13 08:43] VITALS: BP 142/108
[2017-11-13 08:59] LABS: HEMATOCRIT 49.4 % (42.0-52.0); MCH 26.4 pg (26.0-34.0); MCHC 32.3 g/dL (28.0-37.0); MCV 81.7 fL (80.0-100.0); RBC 6.04 mil/uL (4.50-6.00); RDW 17.1 % (10.5-14.5)
[2017-11-13 09:00] LABS: CALCIUM 9.8 mg/dL (8.5-10.1); CREATININE 1.4 mg/dL (0.7-1.3); POTASSIUM 4.3 mmol/L (3.5-5.1)
[2017-11-13 09:01] LABS: PLATELET COUNT 287 thou/uL (150-400)
[2017-11-13 09:46] LABS: ABSOLUTE NEUTROPHILS 19.6 thou/uL (1.4-8.2)
[2017-11-13 12:00] VITALS: BP 153/111
[2017-11-13] MEDS ORDERED: CARDIZEM CD 30300 M1 PO (13:05)
[2017-11-13] MEDS ORDERED: PREDNISONE 10 M10 MG PO (13:05)
[2017-11-13] MEDS ORDERED: TOPROL XL100 MG PO (13:05)
[2017-11-13] MEDS ORDERED: VENTOLIN HFA 1818 GM INH (13:05)
[2017-11-13] MEDS ORDERED: HYDRALAZINE 5050 MG PO (13:11)
[2017-11-13 13:13] VITALS: BP 153/111
[2017-11-13] MEDS ORDERED: BUSPIRONE HCL10 MG PO (13:48)
[2017-11-13] MEDS ORDERED: NEBULIZER MISCELL (14:36)
[2017-11-13] MEDS ORDERED: ALBUTEROL2.5 MG/0.5 INH (14:36)
[2017-11-13 15:48] VITALS: BP 153/111
== END 2017-11-13 15:00 | disposition home or self-care (01) | DRG 853 ==
LOC: ER 09:31 → EROBS 11:36 → 3W 11:36
PROVIDERS: Family Medicine; Hospitalist; Internal Medicine; Internal Medicine Pulmonary Disease; Nurse Practitioner; Specialist
PROC: 5A09357 Assistance with Respiratory Ventilation, Less than 24 Consecutive Hours, Continuous Positive Airway Pressure (ICD-10-PCS; 2017-11-06)
PROC: 0B9G8ZX Drainage of Left Upper Lung Lobe, Via Natural or Artificial Opening Endoscopic, Diagnostic (ICD-10-PCS; principal; 2017-11-09)
PROC: 5A09357 Assistance with Respiratory Ventilation, Less than 24 Consecutive Hours, Continuous Positive Airway Pressure (ICD-10-PCS; 2017-11-09)
PROC: 5A09357 Assistance with Respiratory Ventilation, Less than 24 Consecutive Hours, Continuous Positive Airway Pressure (ICD-10-PCS; 2017-11-11)
DX: A41.9 Sepsis, unspecified organism (principal); J18.9 Pneumonia, unspecified organism; E43 Unspecified severe protein-calorie malnutrition; N17.9 Acute kidney failure, unspecified; I13.0 Hypertensive heart and chronic kidney disease with heart failure and stage 1 through stage 4 chronic kidney disease, or unspecified chronic kidney disease; I50.9 Heart failure, unspecified; E87.6 Hypokalemia; G47.33 Obstructive sleep apnea (adult) (pediatric); I48.0 Paroxysmal atrial fibrillation; N18.9 Chronic kidney disease, unspecified; R91.1 Solitary pulmonary nodule; R59.0 Localized enlarged lymph nodes; Z79.899 Other long term (current) drug therapy
CPT/HCPCS: 10879

== ENCOUNTER → 2017-12-08 | Outpatient (CLI) | payer BC ==
[~2017-12-08] MED LIST changes: +ALBUTEROL2.5 MG/0.5 INH; +BUSPIRONE HCL10 MG PO; +CARDIZEM CD 30300 M1 PO; +CARDIZEM CD240 MG PO; +HYDRALAZINE 5050 MG PO; +NEBULIZER MISCELL; +PREDNISONE 10 M10 MG PO; +TOPROL XL100 MG PO; +XARELTO20 MG PO
== END ==
LOC: CAT 13:44
DX: R92.8 Other abnormal and inconclusive findings on diagnostic imaging of breast (principal); I11.0 Hypertensive heart disease with heart failure; I50.9 Heart failure, unspecified

== ENCOUNTER → 2018-05-10 | Outpatient (CLI) | payer BC | LOC: RAD 12:05 | DX: I51.7 Cardiomegaly (principal); D86.9 Sarcoidosis, unspecified ==

== ENCOUNTER → 2018-09-27 | Outpatient (CLI) | payer BC | LOC: RAD 13:11 | DX: D86.2 Sarcoidosis of lung with sarcoidosis of lymph nodes (principal); R06.00 Dyspnea, unspecified; R91.8 Other nonspecific abnormal finding of lung field ==

== ENCOUNTER → 2019-01-31 | Outpatient (CLI) | payer BC | LOC: RAD 12:13 | DX: M47.814 Spondylosis without myelopathy or radiculopathy, thoracic region (principal); D86.9 Sarcoidosis, unspecified; R06.00 Dyspnea, unspecified ==

== ENCOUNTER 2019-07-25 16:31 | Emergency (ER) | payer BC ==
[~2019-07-25] VITALS: Ht 172.7 cm; Wt 117.9 kg
[2019-07-25] MEDS ORDERED: AUGMENTIN 875-1 EACH PO (20:20)
[2019-07-25 20:21] VITALS: BP 147/105
== END 2019-07-25 20:58 | disposition home or self-care (01) ==
LOC: ER 16:31
DX: J18.9 Pneumonia, unspecified organism (principal); I10 Essential (primary) hypertension; G47.30 Sleep apnea, unspecified; Z90.49 Acquired absence of other specified parts of digestive tract

== ENCOUNTER → 2020-06-05 | Outpatient (CLI) | payer BC ==
[~2020-06-05] MED LIST changes: +AUGMENTIN 875-1 EACH PO
== END ==
LOC: RAD 09:45
PROVIDERS: ATTEND Internal Medicine Pulmonary Disease
DX: I51.7 Cardiomegaly (principal); D86.9 Sarcoidosis, unspecified; I77.810 Thoracic aortic ectasia; J98.4 Other disorders of lung

== ENCOUNTER 2021-01-24 15:32 | Inpatient (IN) | payer BC ==
[~2021-01-24] VITALS: Ht 172.7 cm; Wt 124.3 kg
[2021-01-24] VITALS (7 sets, daily range): BP systolic 127–172; BP diastolic 80–115
[2021-01-24 17:12] LABS: ABSOLUTE NEUTROPHILS 6.9 thou/uL (1.4-8.2); BASOPHILS 0.5 % (0.0-2.0); EOSINOPHILS 3.4 % (0.0-3.0); HEMATOCRIT 41.2 % (42.0-52.0); LYMPHOCYTES 9.1 % (24.0-44.0); MCH 27.9 pg (26.0-34.0); MCHC 31.7 g/dL (28.0-37.0); MCV 88.1 fL (80.0-100.0); MONOCYTES 7.4 % (1.0-8.0); PLATELET COUNT 239 thou/uL (150-400); POLYS 79.6 % (36.0-66.0); RBC 4.67 mil/uL (4.50-6.00); RDW 16.5 % (10.5-14.5); WBC 8.7 thou/uL (4.0-11.0)
[2021-01-24 17:22] LABS: ANION GAP 8 mmol/L (7-16); BUN 25 mg/dL (7-18); CALCIUM 9.2 mg/dL (8.5-10.1); CHLORIDE 108 mmol/L (98-107); CO2 27 mmol/L (21-32); CREATININE 1.6 mg/dL (0.7-1.3); GLUCOSE 108 mg/dL (74-106); POTASSIUM 4.2 mmol/L (3.5-5.1); SODIUM 143 mmol/L (136-145)
[2021-01-24 17:29] LABS: TROPONIN-I <0.06 ng/mL (<0.06)
[2021-01-24 18:03] LABS: BE(vivo) -2.4 mmol/L (-2 to +3); HCO3 21.5 mmol/L (22.0-26.0); PO2 62.4 mmHg (80.0-100.0); pH 7.407 (7.360-7.450); sO2 92.3 % (92.0-98.0)
--- NOTE | 2021-01-24 22:55 | NUR ---
PT ALERT AND ORIENTED X4.BP MODERATELY ELEVATED HS BP MEDS GIVEN AND A ONETIME ORDER FOR METOPROLOL GIVEN FOR ELEVATED HR. PT IS RESTING QUIETY WITH BIPAP ON. BS DIMINSHED ASHLEE BUT CURRENTLY UNLABORED. VOIDING CLEAR YELLOW URINE PER URINAL AFTER LASIX GIVEN IN ER.BED DOWN CALL LIGHT IN REACH. INSTRUCTEF PT ON FALL PRECAUTIONS.
--- NOTE | 2021-01-25 03:45 | NUR ---
PT PROGRESSING SLOWLY TOWARDS D/C GOALS. RESPIRATONS ARE LESS LABORED. 24/MIN. SAT 98% CURRENTLY ON BIPAP. BS STILL SOUND DIMINISHED. WILL CONTINUE TO MONITOR PT FOR CHANGES.
[2021-01-25 04:34] VITALS: BP 138/98
[2021-01-25 08:05] VITALS: BP 149/97
--- NOTE | 2021-01-25 09:50 | EKG ---
[address] [place] [address] ELECTROCARDIOGRAM REPORT Name: SVETA MADRID Room #: 364-P ADM IN M.R.#: [id number] Admission: 01/24/21 Attend Phys: Darling Venegas Discharge: Date of : 60 Report #: [id number] [facility] ED Test Date: 2021-01-24 Test Time: 16:23:07 Pat Name: SVETA MADRID Department: Room: 364 Gender: M Reinspector: : 1960 Requested By: Leah Valdez Order Number: [id number] MD: Tano Gautam Measurements Intervals [place] Rate: 109 P: AR: QRS: -4 QRSD: 89 T: 2 QT: 353 QTc: 476 Interpretive Statements Atrial fibrillation Abnormal R-wave progression, late transition Compared to ECG 11/06/2017 14:14:57 No significant changes Electronically Signed On 01-25-2021 9:50:43 CDT by Tano Gautam [email or web address] <ELECTRONICALLY SIGNED> By: Tano Gautam MD, [facility] 01/25/21 0950 1623 1623 Tano Gautam MD, FACC /EPI
[2021-01-25 15:37] VITALS: BP 140/91
[2021-01-25] MEDS ORDERED: FLONASE 0.05%50 MCG NASAL (20:34)
[2021-01-25 21:01] VITALS: BP 142/100
[2021-01-26 05:17] VITALS: BP 165/112
[2021-01-26 07:41] VITALS: BP 156/112
[2021-01-26] MEDS ORDERED: LEVOFLOXACIN500 MG PO (10:31)
[2021-01-26 11:40] VITALS: BP 151/102
[2021-01-26 12:50] VITALS: BP 138/91
[2021-01-26 13:46] VITALS: BP 138/91
--- NOTE | 2021-01-26 15:25 | NUR ---
CONTACTED DR. ALVAREZ DUE TO PATIENT CONCERN ABOUT BEING DISCARGED WITHOUT A STEP DOWN STEROID PACK. PT INFORMED ME THAT ALL HE HAS AT HOME IS 1MG AND THE LAST TIME HE WAS ON HIGH DOSE STERIODS HE HAD TO TAPER OFF OF THEM OVER SEVERAL MONTHS. INFORMED DR. ALVAREZ OF THIS RECIEVED ORDERS TO STILL DISCHARGE HIM WITHOUT ANY ADDITIONAL STERIODS.
--- NOTE | 2021-01-26 15:50 | NUR ---
PATIENT DISCHARGE EDUCATION/TEACHING DONE. NO QUESTIONS OR CONERNS FROM PATIENT. ALL BELONINGS SENT WITH PATIENT. TELE AND IV REMOVED. TAKEN OUT IN WHEELCHAIR WITH STAFF TO PRIVATE VEHICLE WHERE IS WAITING.
== END 2021-01-26 16:04 | disposition home or self-care (01) | DRG 291 ==
LOC: ER 15:32 → 3W 18:07 → EROBS 18:07 → 3W 19:23
PROVIDERS: Emergency Medicine; ADMIT Hospitalist; ATTEND Hospitalist
PROC: 5A09357 Assistance with Respiratory Ventilation, Less than 24 Consecutive Hours, Continuous Positive Airway Pressure (ICD-10-PCS; principal; 2021-01-24)
PROC: 5A09357 Assistance with Respiratory Ventilation, Less than 24 Consecutive Hours, Continuous Positive Airway Pressure (ICD-10-PCS; 2021-01-25)
PROC: 5A09357 Assistance with Respiratory Ventilation, Less than 24 Consecutive Hours, Continuous Positive Airway Pressure (ICD-10-PCS; 2021-01-26)
DX: I11.0 Hypertensive heart disease with heart failure (principal); J96.21 Acute and chronic respiratory failure with hypoxia; J18.9 Pneumonia, unspecified organism; R65.11 Systemic inflammatory response syndrome (SIRS) of non-infectious origin with acute organ dysfunction; I48.20 Chronic atrial fibrillation, unspecified; I50.33 Acute on chronic diastolic (congestive) heart failure; I08.2 Rheumatic disorders of both aortic and tricuspid valves; D86.9 Sarcoidosis, unspecified; Z20.822 Contact with and (suspected) exposure to COVID-19; Z79.899 Other long term (current) drug therapy; Z79.01 Long term (current) use of anticoagulants
CPT/HCPCS: 10879

== ENCOUNTER → 2021-02-12 | Outpatient (CLI) | payer BC ==
[~2021-02-12] MED LIST changes: +FLONASE 0.05%50 MCG NASAL; +LEVOFLOXACIN500 MG PO
== END ==
LOC: SJCVCIMAG 01-15 09:08
PROVIDERS: ATTEND Internal Medicine
DX: I08.2 Rheumatic disorders of both aortic and tricuspid valves (principal); I27.20 Pulmonary hypertension, unspecified

== ENCOUNTER 2021-06-27 07:36 | Inpatient (IN) | payer BC ==
[~2021-06-27] VITALS: Ht 172.7 cm; Wt 122.3 kg
[2021-06-27 07:39] VITALS: BP 163/105
[2021-06-27 08:38] LABS: CALCIUM 9.1 mg/dL (8.5-10.1); CREATININE 1.2 mg/dL (0.7-1.3); POTASSIUM 3.5 mmol/L (3.5-5.1)
[2021-06-27 09:04] LABS: ABSOLUTE NEUTROPHILS 11.5 thou/uL (1.4-8.2); BASOPHILS 0.4 % (0.0-2.0); HEMATOCRIT 33.7 % (42.0-52.0); HEMOGLOBIN 10.3 gm/dL (14.0-18.0); LYMPHOCYTES 4.7 % (24.0-44.0); MCH 24.4 pg (26.0-34.0); MCHC 30.6 g/dL (28.0-37.0); MCV 79.6 fL (80.0-100.0); MONOCYTES 5.5 % (1.0-8.0); PLATELET COUNT 267 thou/uL (150-400); POLYS 88.4 % (36.0-66.0); RBC 4.23 mil/uL (4.50-6.00); RDW 19.2 % (10.5-14.5); WBC 13.1 thou/uL (4.0-11.0)
[2021-06-27] MEDS ORDERED: PREDNISONE 1 MG1 M1 PO (14:40)
[2021-06-27 17:10] VITALS: BP 135/86
[2021-06-27 18:03] VITALS: BP 159/103
[2021-06-27 18:19] VITALS: BP 156/99
[2021-06-27 19:20] VITALS: BP 137/93
[2021-06-27 23:57] VITALS: BP 137/93
--- NOTE | 2021-06-28 03:43 | NUR ---
ASSUMED PT CARE AT 1900. PT ALERT & ORIENTED X 4. PT ON A CARDIZEM DRIP RUNNING AT 10MG/HR. TITRATING PRN. NO CHANGES HAVE BEEN MADE TO INITAL DOSE. PT AFIB ON TELE MONITOR WITH HR RANGING FROM 88-97. PT HAS BEEN STABLE. PT USES CPAP HS. WILL CONTINUE TO MONITOR.
[2021-06-28 04:25] VITALS: BP 129/82
[2021-06-28 07:08] VITALS: BP 146/96
--- NOTE | 2021-06-28 09:23 | HC ---
[facility] [place] [address] CONSULTATION Name: SVETA MADRID Room #: [facility] ADM IN M.R.#: [id number] Admission: 06/27/21 Attend Phys: Franky Dillon MD Discharge: Date of : 60 Report #: [id number] THIS REPORT FOR: cc: Angelo Flanagan MD, Chris W MD Barry, Joseph W. MD ~ DATE OF SERVICE: 06/28/2021 INFECTIOUS DISEASE CONSULTATION ATTENDING PHYSICIAN: Dr. Dillon. REASON FOR EVALUATION: Lower respiratory tract infection in setting of sarcoidosis. HISTORY OF PRESENT ILLNESS: Chart reviewed. The patient examined. This is a 60-year-old gentleman with known history of sarcoidosis, has been on chronic corticosteroids, who notes he has a pattern of developing describes as cold, primarily upper respiratory tract signs and symptoms. He notes significant posterior drainage and roughly once a month has required to be hospitalized due to pneumonitis. He notes having significant difficulty breathing. He is maintained on room air. He does have a cough that is quite productive. He complains of sinus congestion as well. He notes some chills previously. He is not aware of any fevers. Appetite has been satisfactory. No gastrointestinal related complaints. Chest x-ray was done, showed moderate widespread bilateral multifocal mixed interstitial alveolar infiltrates, suggests perhaps acute on chronic issue. Initial white count was mildly elevated at 13.1. Coronavirus testing was negative. Procalcitonin 0.08. Blood cultures collected at time of admission are sterile thus far. He was empirically started on ceftriaxone. ALLERGIES: None known. MEDICATIONS: Include torsemide, methylprednisolone 40 daily, lisinopril, pantoprazole, levalbuterol, budesonide, ceftriaxone, fluticasone, diltiazem CD, rivaroxaban. PAST MEDICAL HISTORY: As described above, history of sarcoidosis, obstructive sleep apnea, chronic atrial fibrillation, seasonal allergies, hypertension. SOCIAL HISTORY: Nonsmoker, occasional ethanol, no illicit drug use. FAMILY HISTORY: Noncontributory. REVIEW OF SYSTEMS: Otherwise, unremarkable. PHYSICAL EXAMINATION: [facility] [address] [place] [address] CONSULTATION Name: SVETA MADRID Room #: 358-P [facility] IN M.R.#: [id number] Admission: 06/27/21 Attend Phys: Franky Dillon MD Discharge: Date of : 60 Report #: [id number] GENERAL: He is alert, cooperative, appropriate. He is not overtly dyspneic. He is able to complete sentences. He is lucid, mild to moderate distress. VITAL SIGNS: Temperature 98.6, pulse 51, respirations 16, blood pressure 146/96. SKIN: Warm, dry, no rashes. HEENT: Normocephalic. Extraocular muscles intact. NECK: Supple. LUNGS: Bilateral few scattered coarse breath sounds. HEART: Irregular. I do not appreciate a murmur. ABDOMEN: Obese, distended, firm, nontender. GENITOURINARY AND RECTAL: Deferred. LABORATORY DATA: TSH 2.350. CBC: White count of 13.1, H and H 10.3 and 33.7, platelets 267. Electrolytes: Sodium 144, potassium 3.5, chloride 108, bicarb is 27, anion gap of 9, BUN and creatinine 33 and 1.2. Chest x-ray as described above. ASSESSMENT: Pneumonitis in setting of sarcoidosis and some degree of immunosuppression, may well have sinusitis as well. We will attempt to obtain sputum, going to image the sinuses and see how he does clinically in the next 24-48 hours, perhaps early transition to p.o. antibiotics would be not unreasonable. We will check some urinary antigen as well. <ELECTRONICALLY SIGNED> By: Kaz Braga MD 06/28/21 0923 0754 0807 Kaz Braga MD /nt
[2021-06-28 11:05] VITALS: BP 148/106
--- NOTE | 2021-06-28 12:42 | EKG ---
[address] [address] ELECTROCARDIOGRAM REPORT Name: SVETA MADRID Room #: 358- ADM IN M.R.#: [id number] Admission: 06/27/21 Attend Phys: Franky Dillon MD Discharge: Date of : 60 Report #: [id number] [facility] ED Test Date: 2021-06-27 Test Time: 07:44:04 Pat Name: SVETA MADRID Department: Room: [facility] Gender: M Shaper Setter: FILOMENA : 1960 Requested By: Dustin Sanchez Order Number: [id number] MD: Jorge Agustin Measurements Intervals [place] Rate: 116 P: [place]: QRS: -42 QRSD: 85 T: -14 QT: 373 QTc: 519 Interpretive Statements Atrial fibrillation Left axis deviation Borderline T abnormalities, inferior leads Compared to ECG 01/24/2021 16:23:07 Left-axis deviation now present Electronically Signed On 06-28-2021 12:42:21 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
[2021-06-28 13:01] LABS: HEMATOCRIT 38.6 % (42.0-52.0); HEMOGLOBIN 11.8 gm/dL (14.0-18.0); MCH 24.3 pg (26.0-34.0); MCHC 30.6 g/dL (28.0-37.0); MCV 79.6 fL (80.0-100.0); RBC 4.84 mil/uL (4.50-6.00); RDW 19.5 % (10.5-14.5); WBC 21.9 thou/uL (4.0-11.0)
[2021-06-28 13:16] LABS: CALCIUM 9.3 mg/dL (8.5-10.1); CREATININE 1.8 mg/dL (0.7-1.3); MAGNESIUM 2.1 mg/dL (1.8-2.4); POTASSIUM 4.3 mmol/L (3.5-5.1)
[2021-06-28 13:18] LABS: PLATELET COUNT 363 thou/uL (150-400)
[2021-06-28 13:19] LABS: CALCIUM 9.3 mg/dL (8.5-10.1); CREATININE 1.8 mg/dL (0.7-1.3); POTASSIUM 4.1 mmol/L (3.5-5.1)
[2021-06-28 14:18] LABS: ABSOLUTE NEUTROPHILS 21.2 thou/uL (1.4-8.2)
[2021-06-28 14:19] LABS: ANISOCYTOSIS 2+; HYPOCHROMASIA 1+; MACROCYTES 1+
[2021-06-28 15:08] VITALS: BP 136/102
--- NOTE | 2021-06-28 16:35 | NUR ---
PT ARRIVED TO ROOM VIA W/C. PT IS STABLE A TIME OF ADMISSION. PTS FSBS IS CHECKED. PT IS OFFERED FOOD AND DRINK AND PUT ON TELE MONITOR. PT IS RESTING IN ROOM COMFORTABLY AT THIS TIME. WILL CONTINUE TO MONITOR.
[2021-06-28 19:45] VITALS: BP 183/105
[2021-06-29] VITALS (7 sets, daily range): BP systolic 137–177; BP diastolic 90–122
[2021-06-29 10:30] LABS: HEMOGLOBIN 11.6 gm/dL (14.0-18.0); MCH 23.7 pg (26.0-34.0); MCHC 29.6 g/dL (28.0-37.0); MCV 80.1 fL (80.0-100.0); PLATELET COUNT 371 thou/uL (150-400); RBC 4.87 mil/uL (4.50-6.00); RDW 19.2 % (10.5-14.5); WBC 23.6 thou/uL (4.0-11.0)
[2021-06-29 11:20] LABS: ABSOLUTE NEUTROPHILS 22.2 thou/uL (1.4-8.2)
[2021-06-29 11:21] LABS: ANISOCYTOSIS 2+; HYPOCHROMASIA 1+
[2021-06-29 13:46] LABS: CALCIUM 8.8 mg/dL (8.5-10.1); CREATININE 1.6 mg/dL (0.7-1.3); POTASSIUM 4.8 mmol/L (3.5-5.1)
--- NOTE | 2021-06-29 19:51 | NUR ---
RN TOOK CARE PT AT 0700-1900PM, PT IS A&OX4, PT IS ON ROOM AIR , PT'S BP AND CHEST PAIN HAVE IMPROVED,
[2021-06-30 03:51] VITALS: BP 194/128
[2021-06-30 04:00] VITALS: BP 154/115
--- NOTE | 2021-06-30 05:55 | NUR ---
Pt. stated he slept well during the night with CPAP on. Elevated BP called to SUSTAINABILITY PROJECT MANAGER and hydralazine 10 mg IV ordered and given to pt. A fib with controlled rate. He has been afebrile.
[2021-06-30 07:17] VITALS: BP 187/119
[2021-06-30] MEDS ORDERED: CLONIDINE HCL0.3 M3 PO (07:46)
[2021-06-30] MEDS ORDERED: BENICAR40 MG PO (07:46)
[2021-06-30 10:03] VITALS: BP 155/106
[2021-06-30 14:31] LABS: CALCIUM 9.2 mg/dL (8.5-10.1); CREATININE 1.5 mg/dL (0.7-1.3); POTASSIUM 4.4 mmol/L (3.5-5.1)
[2021-06-30] MEDS ORDERED: TORSEMIDE20 MG PO (15:52)
[2021-06-30] MEDS ORDERED: CEFDINIR300 MG PO (15:54)
[2021-06-30] MEDS ORDERED: PREDNISONE 10 M10 M1 PO (15:54)
[2021-06-30 16:50] VITALS: BP 155/106
[2021-06-30 18:11] VITALS: BP 156/112
--- NOTE | 2021-06-30 20:09 | NUR ---
DEON ZAMARRIPA PT'S CARE AT 0700-1830PM, PT IS A&OX4, PT'S BP HAS IMPROVED, PT DENIES CHEST PAIN AND SOB, RN RECEIVED ORDER TO DC PT TO HOME, PT AND PT'S UNDERSTAND DC TEACHING WELL , PT'S ELECTRICAL CONTACTS ADJUSTER PT TO HOME AT 1830PM.
[2021-07-01] MEDS ORDERED: CATAPRES0.2 MG PO (15:32)
== END 2021-06-30 19:17 | disposition home or self-care (01) | DRG 871 ==
LOC: ER 07:36 → EROBS 10:37 → 3W 10:37 → EROBS 16:09 → 3W 17:48
PROVIDERS: Emergency Medicine; Internal Medicine; Nurse Practitioner; Specialist; ADMIT Hospitalist; ATTEND Hospitalist
PROC: 5A09357 Assistance with Respiratory Ventilation, Less than 24 Consecutive Hours, Continuous Positive Airway Pressure (ICD-10-PCS; principal; 2021-06-27)
PROC: 5A09357 Assistance with Respiratory Ventilation, Less than 24 Consecutive Hours, Continuous Positive Airway Pressure (ICD-10-PCS; 2021-06-30)
DX: A41.9 Sepsis, unspecified organism (principal); J18.9 Pneumonia, unspecified organism; J96.01 Acute respiratory failure with hypoxia; I50.33 Acute on chronic diastolic (congestive) heart failure; I13.0 Hypertensive heart and chronic kidney disease with heart failure and stage 1 through stage 4 chronic kidney disease, or unspecified chronic kidney disease; D84.9 Immunodeficiency, unspecified; I48.21 Permanent atrial fibrillation; Z68.41 Body mass index [BMI] 40.0-44.9, adult; Z20.822 Contact with and (suspected) exposure to COVID-19; I48.0 Paroxysmal atrial fibrillation; N18.9 Chronic kidney disease, unspecified; D86.9 Sarcoidosis, unspecified; G47.33 Obstructive sleep apnea (adult) (pediatric); J30.9 Allergic rhinitis, unspecified; E66.01 Morbid (severe) obesity due to excess calories; J06.9 Acute upper respiratory infection, unspecified; J98.8 Other specified respiratory disorders; Z79.01 Long term (current) use of anticoagulants
CPT/HCPCS: 10879